=== PATIENT | male | born 1990 | race American Indian/Alaskan Native ===

== ENCOUNTER 2022-01-08 23:45 | Emergency (ER) | payer OTHER ==
[~2022-01-08 23:45] MED LIST: AZITHROMYCIN250 MG PO; LODINE400 MG PO
[2022-01-09 01:26] LABS: BASOPHIL 0.8 % (0-2); EOSINOPHIL 4.6 % (0-5); HCT 39.1 % (42.0-52.0); HGB 13.5 g/dl (13.2-18.0); LYMPHOCYTE 9.5 % (15-48); MCH 27.7 pg (25.0-31.0); MCHC 34.5 g/dL (32.0-36.0); MCV 80.3 fL (78.0-100.0); MONOCYTE 13.7 % (0-12); MPV 10.5 fL (6.0-9.5); NEUTROPHIL 71.2 % (41-80); NRBC 0; PLT 181 K/uL (150-400); RBC 4.87 M/uL (4.70-6.00); RDW 13.3 % (11.5-14.0); WBC 5.2 K/uL (4.0-10.5)
[2022-01-09 01:40] LABS: ALBUMIN 3.9 g/dL (3.4-5.0); BILIRUBIN - TOTAL 0.3 mg/dL (0.2-1.0); BUN/CREAT RATIO (CALC) 8.5 RATIO; CREATININE 1.06 mg/dL (0.67-1.17); GLOBULIN (CALCULATION) 3.4 g/dL; POTASSIUM 3.3 mmol/L (3.5-5.1); TOTAL PROTEIN 7.3 g/dL (6.4-8.2)
[2022-01-09 02:42] LABS: CORONAVIRUS 2019 SARS-COV-2 POSITIVE (NEGATIVE); INFLUENZA A NAA NEGATIVE (NEGATIVE)
[2022-01-09] MEDS ORDERED: MEDROL 4MG DOSEP4 MG PO (02:56)
== END 2022-01-09 03:00 | disposition home or self-care (01) ==
LOC: FER 23:45
PROVIDERS: Internal Medicine
DX: U07.1 COVID-19 (principal); E87.6 Hypokalemia; J45.909 Unspecified asthma, uncomplicated; F17.210 Nicotine dependence, cigarettes, uncomplicated; Z28.310 Unvaccinated for COVID-19
CPT/HCPCS: 36415; 80053; 84145; 85025; J1100; J1885; U0002